=== PATIENT | male | born 1980 | race Caucasian/White ===

== ENCOUNTER 2017-10-15 08:59 | Emergency (ER) | payer BC, OTHER ==
[2017-10-15] MEDS ORDERED: Ketorolac Tromethamine 30 MG/ML VIAL ONE (09:22)
[2017-10-15 09:41] LABS: #Basophils 0.1 thou/uL (0.0-0.2); #Eosinphils 0.1 thou/uL (0.0-0.7); #Lymphocytes 2.5 thou/uL (1.20-3.40); #Monocytes 1.4 thou/uL (0.11-0.59); %Basophils 0.9 % (0.0-1.0); %Eosinophils 1.1 % (0.0-10.0); %Lymphocytes 17.6 % (21.0-51.0); %Monocytes 9.7 % (0.0-10.0); %Neutrophils 70.8 % (42.0-75.0); Hemoglobin 13.1 g/dL (14.0-18.0); Mean Corpuscular HGB CONC 37.1 g/dL (32.0-36.0); Mean Corpuscular Hemoglobin 31.2 pg (27.0-31.0); Mean Platelet Volume 9.1 fL (7.4-10.4); Platelet Count 217 thou/uL (130-400); RBC Distribution Width 11.9 % (11.5-14.5); Red Blood Cell (RBC) Count 4.21 mill/uL (4.70-6.10); White Blood Cell (WBC) Count 14.2 thou/uL (4.8-10.8)
[2017-10-15 09:42] LABS: ALT (SGPT) 39 U/L (8-55); AST (SGOT) 21 U/L (5-34); Albumin 4.2 g/dL (3.5-5.0); Alkaline Phosphatase 112 U/L (40-150); Anion Gap 14 mmol/L (10-20); BUN (Urea Nitrogen) 7 mg/dL (8.9-20.6); Bilirubin, Total 0.7 mg/dL (0.2-1.2); Calc. Creatinine Clearance 0 mL/min (70-130); Calcium 9.1 mg/dL (7.8-10.44); Carbon Dioxide 23 mmol/L (22-29); Chloride 106 mmol/L (98-107); Estimated GFR-MDRD Greater than 90; Globulin 2.9 g/dL (2.4-3.5); Glucose 122 mg/dL (70-105); Lipase 12 U/L (8-78); Potassium 3.8 mmol/L (3.5-5.1); Protein, Total 7.1 g/dL (6.0-8.3); Sodium 139 mmol/L (136-145)
[2017-10-15 09:51] LABS: MDiff Complete? YES
[2017-10-15 10:12] LABS: Clarity Clear (Clear)
[2017-10-15 10:13] LABS: Bilirubin Negative (Negative); Glucose, Urine (Dipstick) Negative (Negative); Leukocyte Negative (Negative); Nitrite Negative (Negative); Protein, Urine (Dipstick) Negative (Neg-Trace); Urobilinogen 0.2 mg/dL (0.2-1.0); pH, Urine 6.5 (5.0-9.0)
[2017-10-15 10:14] LABS: Blood, Urine Negative (Negative)
--- NOTE | 2017-10-15 11:07 | CT ---
CT ABDOMEN AND PELVIS WITH CONTRAST: Date: 10/15/[address] of the abdomen and pelvis was performed for evaluation of suprapubic pain. Axial slices wer e acquired after giving IV contrast. Oral contrast was withheld by request. Coronal and sagittal homer nstructions were later done. FINDINGS: The major finding on this study is an area of stranding around the sigmoid colon that sits just on th e top of the posterior part of the urinary bladder. Diverticula are present and mild diverticulitis i s diagnosed. There is no sign of abscess or significant free fluid. Elsewhere, the exam was unremarkable. The lung bases are clear. The liver, spleen, pancreas, gallblad rebecca, adrenal glands, kidneys, and abdominal aorta all appeared normal. The remainder of the bowel valerie eared normal. The appendix is normal in appearance. No free air or free fluid was seen. The sole abno rmality of concern in the pelvis was the inflammatory area stated above. Otherwise, the pelvis appear ed normal. IMPRESSION: Mild sigmoid diverticulitis situated just on top of the posterior part of the urinary bladder. POS: HOME
== END 2017-10-15 10:23 | disposition home or self-care (01) ==
LOC: BURERS 08:59
DX: K57.92 Diverticulitis of intestine, part unspecified, without perforation or abscess without bleeding (principal); F90.9 Attention-deficit hyperactivity disorder, unspecified type; M41.9 Scoliosis, unspecified; F17.210 Nicotine dependence, cigarettes, uncomplicated; Z79.899 Other long term (current) drug therapy
CPT/HCPCS: 74177; 80053; 81003; 83605; 83690; 85025; 96361; 96374; J1885

== ENCOUNTER 2018-06-28 17:31 | Emergency (ER) | payer BC, SELFPAY ==
[2018-06-28 18:09] LABS: #Basophils 0.1 thou/uL (0.0-0.2); #Eosinphils 0.1 thou/uL (0.0-0.7); #Monocytes 1.1 thou/uL (0.11-0.59); #Neutrophils 5.4 thou/uL (1.40-6.50); %Basophils 0.7 % (0.0-1.0); %Eosinophils 0.9 % (0.0-10.0); %Monocytes 10.9 % (0.0-10.0); %Neutrophils 56.5 % (42.0-75.0); Hemoglobin 13.3 g/dL (14.0-18.0); Mean Corpuscular Hemoglobin 32.1 pg (27.0-31.0); Mean Corpuscular Volume 94.3 fL (78.0-98.0); Mean Platelet Volume 8.4 fL (7.4-10.4); Platelet Count 211 thou/uL (130-400); RBC Distribution Width 12.9 % (11.5-14.5); Red Blood Cell (RBC) Count 4.14 mill/uL (4.70-6.10); White Blood Cell (WBC) Count 9.6 thou/uL (4.8-10.8)
[2018-06-28 18:23] LABS: ALT (SGPT) 39 U/L (8-55); AST (SGOT) 29 U/L (5-34); Albumin 4.5 g/dL (3.5-5.0); Alkaline Phosphatase 115 U/L (40-150); Anion Gap 15 mmol/L (10-20); BUN (Urea Nitrogen) 9 mg/dL (8.9-20.6); Bilirubin, Total 0.4 mg/dL (0.2-1.2); Calc. Creatinine Clearance 0 mL/min (70-130); Calcium 9.7 mg/dL (7.8-10.44); Carbon Dioxide 25 mmol/L (22-29); Chloride 104 mmol/L (98-107); Estimated GFR-MDRD 74; Globulin 2.9 g/dL (2.4-3.5); Glucose 103 mg/dL (70-105); Potassium 3.6 mmol/L (3.5-5.1); Protein, Total 7.4 g/dL (6.0-8.3); Sodium 140 mmol/L (136-145)
[2018-06-28] MEDS ORDERED: Benzonatate 100 MG CAP ONE ×2 (18:31→18:34)
[2018-06-28] MEDS ORDERED: Azithromycin 250 MG TAB ONE (18:31)
--- NOTE | 2018-06-28 20:19 | RAD ---
CHEST TWO VIEWS: 06/28/18 No prior films were available for comparison. The heart seems slightly larger than expected . There is no vascular congestion or edema. While there is no lobar consolidation, the basilar lung markings seem slightly coarse on some views. The finding s are nonspecific. I note median sternotomy sutures from prior surgery. IMPRESSION: 1. Mild prominence of the cardiac size. 2. No definite signs of pneumonia. POS: HOME
== END 2018-06-28 18:35 | disposition home or self-care (01) ==
LOC: BURERS 17:31
DX: J18.9 Pneumonia, unspecified organism (principal); F90.9 Attention-deficit hyperactivity disorder, unspecified type; F17.210 Nicotine dependence, cigarettes, uncomplicated
CPT/HCPCS: 71046; 80053; 83605; 85025

== ENCOUNTER 2022-10-15 18:07 | Emergency (ER) | payer SELFPAY ==
[2022-10-15] MEDS ORDERED: Tetracaine 0.5% PF 4 ML BOT ONE (18:18)
[2022-10-15] MEDS ORDERED: Fluorescein Opthalmic Strip ONE (18:39)
[2022-10-15] MEDS ORDERED: Ibuprofen 800 MG TAB ONE (19:16)
[2022-10-15] MEDS ORDERED: Ciprofloxacin 0.3% Ophth Soln 2.5 ml Bottle ONE (19:18)
== END 2022-10-15 19:24 | disposition home or self-care (01) ==
LOC: BURERS 18:07
DX: S05.02XA Injury of conjunctiva and corneal abrasion without foreign body, left eye, initial encounter (principal); H10.9 Unspecified conjunctivitis; F17.210 Nicotine dependence, cigarettes, uncomplicated
CPT/HCPCS: 99283